=== PATIENT | female | born 1970 | race Caucasian/White ===

== ENCOUNTER 2016-05-25 22:47 | Emergency (ER) | payer BC ==
[2016-05-25 23:11] LABS: BASO % 0.3 % (0.0-1.0); EOS # 0.1 K/mm3 (0.0-0.50); LARGE UNSTAINED CELL # 0.2 K/mm3 (0.0-0.4); LARGE UNSTAINED CELL % 2.3 % (0.0-4.0); LYMPH # 2.8 K/mm3 (1.5-4.5); LYMPH % 32.3 % (24.0-44.0); MEAN CORPUSCULAR HEMOGLOBIN 28.8 pg (27.0-33.0); MEAN CORPUSCULAR VOLUME 84.7 fl (80.0-96.0); MONO # 0.4 K/mm3 (0.0-0.8); MONO % 4.8 % (0.0-5.0); NEUTROPHILS # 5.2 K/mm3 (1.8-7.7); NEUTROPHILS % 59.4 % (36.0-66.0); PLATELET COUNT, AUTOMATED 317 k/mm3 (150-450); RED CELL DISTRIBUTION WIDTH 13.3 % (11.5-14.5); WHITE BLOOD COUNT 8.8 K/mm3 (4.0-10.0)
[2016-05-25] MEDS ORDERED: ASPIRIN 81 MG CHEW TABLET As Ordered ONE (23:19)
[2016-05-25 23:41] LABS: ANION GAP 11 MEQ/L (8-16); BLOOD UREA NITROGEN 10 MG/DL (7-18); CALCIUM LEVEL 8.8 MG/DL (8.5-10.1); CARBON DIOXIDE LEVEL 24 MEQ/L (21-32); CHLORIDE LEVEL 105 MEQ/L (98-107); CREATININE FOR GFR 1.13 MG/DL (0.55-1.02); GLOMERULAR FILTRATION RATE 54.9 (>58); GLUCOSE, FASTING 122 MG/DL (70-105); POTASSIUM SERUM 3.7 MEQ/L (3.5-5.1); SODIUM LEVEL 140 MEQ/L (136-145)
--- NOTE | 2016-05-26 00:20 | REPUSA ---
CLINICAL HISTORY: Facial numbness. TECHNIQUE: Multiple axial brain CT scan sections were obtained from base to vertex without contrast a dministration. COMMENTS: The study shows normal configuration of sella turcica. There are no intra or extra-axial collections. There is no mass effect or midline shift. There is no evidence of hematoma formation. No hydrocephal us is present. No abnormal calcifications are noted. No significant abnormalities are seen either in the posterior fossa or supratentorial compartment. The sinuses and mastoid air cells are patent. IMPRESSION: No evidence of acute intracranial pathology. Thank you for your kind referral of this patient.
--- NOTE | 2016-05-26 03:04 | REP ---
Clinical: Acute chest pain . Comparison: 05/30/2013 . Technique: PA and lateral. Findings: The mediastinum and cardiac silhouette are normal. The lung ellis are clear and without acute consolidation, effusion, or pneumothorax. The skeletal structures are intact and normal. Impression: 1. No acute cardiopulmonary process. Signed by Ankit Ramirez MD 05/26/2016 02:55 A
--- NOTE | 2016-05-26 03:58 | EDDOCDS ---
Nurse's Notes [facility] Name: Hali Mccarthy Age: 45 yrs Sex: Female : 1970 Arrival Date: 05/25/2016 Time: 22:47 Bed 17 Private MD: Diagnosis: Chest pain, unspecified;Paresthesia of skin Presentation: 05/25 22:50 Presenting complaint: Patient states: Facial numbness since 2144. Left arm pain while lf1 driving in to work tonight resolved quickly without intervention. Had chest pain at 1999 but denies it now. Aspirin was not taken prior to arrival. Adult Sepsis Screening: The patient does not have new or worsening altered mentation. Patient's respiratory rate is less than 22. Systolic blood pressure is greater than 100. Patient has a qSOFA score of 0- Negative Sepsis Screen. Suicide/Homicide risk assessment- the patient denies having any suicidal and/or homicidal ideations and does not present with any other emotional, behavioral or mental health complaints. 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 Transition of care: patient was not received from another setting of care. 22:50 Acuity: JESSICA Level 2 lf1 22:50 Method Of Arrival: Walkin/Carried/Asstd lf1 Triage Assessment: 22:56 General: Appears in no apparent distress, comfortable, Behavior is appropriate for age, lf1 cooperative, pleasant. Pain: Location: anterior aspect of left upper chest Pain currently is 0 out of 10 on a pain scale. Quality of pain is described as shooting, Is intermittent. Pt Declines HIV testing. Neurological: Reports numbness left side of face. Cardiovascular: Chest pain. Cardiovascular: Chest pain is described as vague, quality is shooting radiates Does not radiate. episodes are intermittent last < 1 minute. DIE MAKER BENCH STAMPING: 22:56 LMP 05/17/2016 lf1 Historical: - Allergies: No known drug Allergies; - Home Meds: 1. omeprazole 40 mg Oral cpDR 1 cap once daily (Last dose: 05/25/2016) 2. Iron CR 250 mg Oral cpER 2 tab daily (Last dose: 05/25/2016) 3. metformin 500 mg Oral tr24 2 tabs once daily (Last dose: 05/25/2016) 4. Vitamin D Oral 2000 units daily (Last dose: 05/25/2016) 5. senna 8.6 mg oral cap 1 caps once daily (Last dose: 05/25/2016) 6. Tums Oral 4 tabs (Last dose: 05/25/2016 20:00) - PMHx: Diabetes - NIDDM: controlled; GERD; Anemia; - PSHx: Tubal ligation; ; - Social history: Smoking status: Patient states was never smoker of tobacco. No barriers to communication noted, The patient speaks fluent Monegasque, Speaks appropriately for age. - Family history: Not pertinent. - : The pt / caregiver states he / she is not on anticoagulants. Home medication list is obtained from the patient, [employer] import data. - Exposure Risk Screening:: None identified. Screenin:08 Screening information is obtained from the patient. Fall risk: No risks identified. jp6 Assistance ADL's: requires no assistance with activities of daily living. Abuse/DV Screen: The patient / caregiver reports he/she is: not in a situation that causes fear, pain or injury. Nutritional screening: No deficits noted. Advance Directives: Currently, there is no health care proxy. There is no active DNR order. There is no living will. home support is adequate. Assessment: 23:08 General: Appears in no apparent distress, comfortable, well developed, well nourished, jp6 Behavior is appropriate for age, cooperative. Pain: Denies pain. Neurological: Level of Consciousness is awake, alert, Oriented to person, place, time, Numbness in face. EENT: No deficits noted. Cardiovascular: Capillary refill < 3 seconds Heart tones S1 S2 present Rhythm is sinus rhythm No ectopy. Respiratory: No deficits noted. Airway is patent Respiratory effort is even, unlabored, Respiratory pattern is regular, symmetrical, Breath sounds are clear bilaterally. GI: No deficits noted. : No deficits noted. Derm: Skin is pink, warm & dry. Musculoskeletal: No deficits noted. 05/26 00:15 Reassessment: Patient appears in no apparent distress at this time. Patient denies pain jp6 at this time. Patient states feeling better. Patient states symptoms have improved. Neurological: Level of Consciousness is awake, alert, Oriented to person, place, time. Cardiovascular: Rhythm is sinus rhythm No ectopy. Respiratory: Airway is patent Respiratory effort is even, unlabored, Respiratory pattern is regular, symmetrical. Derm: Skin is pink, warm & dry. 01:00 Reassessment: Patient appears in no apparent distress at this time. Patient states jp6 feeling better. Neurological: Level of Consciousness is awake, alert, Oriented to person, place, time. Cardiovascular: Rhythm is sinus rhythm No ectopy. Respiratory: Airway is patent Respiratory effort is even, unlabored, Respiratory pattern is regular, symmetrical. Derm: Skin is pink, warm & dry. 02:27 Reassessment: Patient appears in no apparent distress at this time. Patient denies pain jp6 at this time. Patient states feeling better. Patient states symptoms have improved. General: Appears in no apparent distress, comfortable, Behavior is appropriate for age, cooperative. Pain: Denies pain. Neurological: Level of Consciousness is awake, alert, Oriented to person, place, time. Cardiovascular: Capillary refill < 3 seconds Rhythm is sinus rhythm No ectopy. Respiratory: Airway is patent Respiratory effort is even, unlabored, Respiratory pattern is regular, symmetrical. Derm: Skin is pink, warm & dry. 03:56 Reassessment: Patient appears in no apparent distress at this time. Discharge sls1 instructions reviewed with pt including medication use, follow up care and referral for cardiology, pt verbalizes understanding d/c home . Pain: Denies pain. Respiratory: Airway is patent Respiratory effort is even, unlabored, Respiratory pattern is regular, symmetrical. Derm: No deficits noted. Vital Signs: 05/25 22:49 BP 158 / 57; Pulse 98; Resp 20; Temp 97.9; Pulse Ox 100% ; bnb 23:01 BP 149 / 84 (auto/); jp6 23:02 Pulse 84 MON; Pulse Ox 99% ; jp6 23:31 BP 123 / 82 (auto/); jp6 23:31 Pulse 86 MON; Pulse Ox 97% ; jp6 05/26 00:01 BP 111 / 63 (auto/); jp6 00:02 Pulse 68 MON; Pulse Ox 97% ; jp6 00:31 BP 114 / 57 (auto/); jp6 00:31 Pulse 78 MON; Pulse Ox 96% ; jp6 00:42 Pulse 60 MON; Pulse Ox 96% ; jp6 01:01 BP 116 / 66 (auto/); jp6 01:01 Pulse 66 MON; Pulse Ox 98% ; jp6 01:31 BP 114 / 63 (auto/); jp6 01:31 Pulse 62 MON; Pulse Ox 97% ; jp6 02:01 BP 116 / 71 (auto/); jp6 02:01 Pulse 84 MON; Pulse Ox 99% ; jp6 02:26 Pulse 60 MON; Pulse Ox 98% ; jp6 03:47 BP 107 / 71; Pulse 71; Resp 18; Temp 98.7(O); Pulse Ox 97% on R/A; Pain 0/10; breanne Vitals: 05/25 22:49 Log In Time: May 25, 2016 at 22:49. bnb ED Course: 22:48 Patient visited by Neisha Felipe PCA. bnb 22:48 Patient moved to Waiting bnb 22:49 Patient visited by Neisha Felipe PCA. bnb 22:50 Patient visited by Neisha Felipe PCA. bnb 22:52 Mile Jordan FNP is PHCP. le 22:52 Patient moved to 19 cz 22:52 Triage Initiated lf1 22:53 Patient moved to 17 cz 22:54 Ana Sawyer,RN is Primary Nurse. jp6 23:04 Patient visited by Mile Jordan FNP. le 23:04 Patient visited by Mile Jordan FNP. le 23:04 Pt greeted and oriented to ED. Patient advised of names of staff involved in care, breanne location of call thorpe, wait times and NPO status. Patient has correct armband on for positive identification. Placed in gown. Bed in low position. Call light in reach. Side rails up X2. radiation monitor on. Pulse ox on. NIBP on. 23:05 Patient visited by Lorena Guevara PCA. breanne 23:05 EKG done. (by ED staff). Reviewed by Mile FENG. breanne 23:08 The patient / caregiver is instructed regarding the plan of care and ED course. jp6 23:08 Inserted saline lock: 20 gauge in left forearm and blood collected. No procedures done jp6 that require assistance. 23:59 Fred Roca DO is Attending Physician. cs11 05/26 00:06 Patient visited by Lorena Guevara PCA. breanne 00:26 CT Head Without Contrast Returned. EDMS 00:29 [facility] [place] Agreement was scanned into [employer] and attached to record. hs2 00:30 Patient name changed from Hali\S\\S\Bovee\S\ to Hali\S\ \S\Bovee. EDMS 01:25 Patient visited by Lorena Guevara PCA. breanne 02:04 EKG done. (by ED staff). Reviewed by Fred Roca DO. cln 02:25 Patient visited by Lorena Guevara PCA. breanne 02:26 Troponin Sent. jp6 02:26 CIP Sent. jp6 03:19 Chest, 2 View (pa\E\lat) Returned. EDMS 03:26 Patient visited by Lorena Guevara PCA. breanne 03:46 Trae Fabian is Referral Physician. cs11 03:47 Patient visited by Lorena Guevara PCA. breanne 03:56 Discontinued lock intact, bleeding controlled, pressure dressing applied, No sls1 redness/swelling at site. Administered Medications: 05/25 22:54 CANCELLED (Other Intervention Used): Aspirin Chewable Tablet 324 mg PO once le 23:21 Drug: Aspirin 324 mg [aspirin 81 mg chewable tablet (4 tabs)] Route: PO; jp6 Order Results: Lab Order: Basic Metabolic Profile; SPEC'M 05/25/16 23:05 Test: GLUCOSE, FASTING; Value: 122; Range: 70-105; Abnormal: Above high normal; Units: MG/DL; Status: F Test: BLOOD UREA NITROGEN; Value: 10; Range: 7-18; Units: MG/DL; Status: F Test: CREATININE FOR GFR; Value: 1.13; Range: 0.55-1.02; Abnormal: Above high normal; Units: MG/DL; Status: F Test: GLOMERULAR FILTRATION RATE; Value: 54.9; Range: >58; Abnormal: Below low normal; Status: F Test: SODIUM LEVEL; Value: 140; Range: 136-145; Units: MEQ/L; Status: F Test: POTASSIUM SERUM; Value: 3.7; Range: 3.5-5.1; Units: MEQ/L; Status: F Test: CHLORIDE LEVEL; Value: 105; Range: 98-107; Units: MEQ/L; Status: F Test: CARBON DIOXIDE LEVEL; Value: 24; Range: 21-32; Units: MEQ/L; Status: F Test: ANION GAP; Value: 11; Range: 8-16; Units: MEQ/L; Status: F Test: CALCIUM LEVEL; Value: 8.8; Range: 8.5-10.1; Units: MG/DL; Status: F Test Note: ; Units are mL/min/1.73 m2 Chronic Kidney Disease Staging per NKF: Stage I & II GFR >=60 Normal to Mildly Decreased Stage III GFR 30-59 Moderately Decreased Stage IV GFR 15-29 Severely Decreased Stage V GFR <15 Very Little GFR Left ESRD GFR <15 on ADULT BASIC EDUCATION MANAGER Lab Order: CBC with Diff; SPEC'M 05/25/16 23:05 Test: WHITE BLOOD COUNT; Value: 8.8; Range: 4.0-10.0; Units: K/mm3; Status: F Test: RED BLOOD COUNT; Value: 4.59; Range: 4.00-5.40; Units: M/mm3; Status: F Test: HEMOGLOBIN; Value: 13.2; Range: 12.0-16.0; Units: g/dl; Status: F Test: HEMATOCRIT; Value: 38.9; Range: 36.0-47.0; Units: %; Status: F Test: MEAN CORPUSCULAR VOLUME; Value: 84.7; Range: 80.0-96.0; Units: fl; Status: F Test: MEAN CORPUSCULAR HEMOGLOBIN; Value: 28.8; Range: 27.0-33.0; Units: pg; Status: F Test: MEAN CORPUSCULAR HGB CONC; Value: 34.0; Range: 32.0-36.5; Units: g/dl; Status: F Test: RED CELL DISTRIBUTION WIDTH; Value: 13.3; Range: 11.5-14.5; Units: %; Status: F Test: PLATELET COUNT, AUTOMATED; Value: 317; Range: 150-450; Units: k/mm3; Status: F Test: NEUTROPHILS %; Value: 59.4; Range: 36.0-66.0; Units: %; Status: F Test: LYMPH %; Value: 32.3; Range: 24.0-44.0; Units: %; Status: F Test: MONO %; Value: 4.8; Range: 0.0-5.0; Units: %; Status: F Test: EOS %; Value: 1.0; Range: 0.0-3.0; Units: %; Status: F Test: BASO %; Value: 0.3; Range: 0.0-1.0; Units: %; Status: F Test: LARGE UNSTAINED CELL %; Value: 2.3; Range: 0.0-4.0; Units: %; Status: F Test: NEUTROPHILS #; Value: 5.2; Range: 1.8-7.7; Units: K/mm3; Status: F Test: LYMPH #; Value: 2.8; Range: 1.5-4.5; Units: K/mm3; Status: F Test: MONO #; Value: 0.4; Range: 0.0-0.8; Units: K/mm3; Status: F Test: EOS #; Value: 0.1; Range: 0.0-0.50; Units: K/mm3; Status: F Test: BASO #; Value: 0.0; Range: 0.0-0.2; Units: K/mm3; Status: F Test: LARGE UNSTAINED CELL #; Value: 0.2; Range: 0.0-0.4; Units: K/mm3; Status: F Lab Order: Cardiac Injury Profile; SPEC'M 05/25/16 23:05 Test: CPK CREATINE PHOSPHOKINASE; Value: 74; Range: 26-192; Units: U/L; Status: F Test: CK-MB VALUE MASS; Value: 1.0; Range: 0.0-3.6; Units: NG/ML; Status: F Test: MB/CK RELATIVE INDEX; Value: 1.35; Range: < OR =4; Status: F Test Note: ; DIAGNOSIS CRITERIA MMB ng/ml Relative Index (RI) NON-AMI < or = 5 N/A AKINS ZONE > 5 < or = 4 AMI > 5 > 4 Lab Order: Troponin; SPEC'M 05/25/16 23:05 Test: TROPONIN I; Value: < 0.02; Range: < 0.10; Units: NG/ML; Status: F Test Note: ; Troponin I Reference Interval for [employer] LOCI: 99th Percentile= 0.00-0.045 ng/ml Risk Stratification: <= 0.10 ng/ml Decreased Risk for Adverse Clinical Events. 0.10-1.50 ng/ml Increased Risk for Adverse Clinical Events. Evaluation of additional criterion and/or repeat testing in 2-6 hours is suggested to rule out myocardial damage. >= 1.50 ng/ml Indicative of Myocardial Injury. Lab Order: ESR; SPEC'M 05/25/16 23:04 Test: ERYTHROCYTE SEDIMENTATION RATE; Value: 28; Range: 0-20; Abnormal: Above high normal; Units: mm/hr; Status: F Lab Order: CIP; SPEC'M 05/26/16 02:26 Test: CPK CREATINE PHOSPHOKINASE; Value: 67; Range: 26-192; Units: U/L; Status: F Test: CK-MB VALUE MASS; Value: 1.0; Range: 0.0-3.6; Units: NG/ML; Status: F Test: MB/CK RELATIVE INDEX; Value: 1.49; Range: < OR =4; Status: F Test Note: ; DIAGNOSIS CRITERIA MMB ng/ml Relative Index (RI) NON-AMI < or = 5 N/A AKINS ZONE > 5 < or = 4 AMI > 5 > 4 Lab Order: Troponin; SPEC'M 05/26/16 02:26 Test: TROPONIN I; Value: < 0.02; Range: < 0.10; Units: NG/ML; Status: F Test Note: ; Troponin I Reference Interval for [employer] LOCI: 99th Percentile= 0.00-0.045 ng/ml Risk Stratification: <= 0.10 ng/ml Decreased Risk for Adverse Clinical Events. 0.10-1.50 ng/ml Increased Risk for Adverse Clinical Events. Evaluation of additional criterion and/or repeat testing in 2-6 hours is suggested to rule out myocardial damage. >= 1.50 ng/ml Indicative of Myocardial Injury. Radiology Order: Chest, 2 View (pa\E\lat) Test: Chest, 2 View (pa\E\lat) REASON FOR EXAMINATION: Chest Pain; Clinical: Acute chest pain .; ; Comparison: 05/30/2013 .; ; Technique: PA and lateral.; ; Findings:; The mediastinum and cardiac silhouette are normal. The lung ellis are clear and; without acute consolidation, effusion, or pneumothorax. The skeletal structures; are intact and normal.; ; Impression:; 1. No acute cardiopulmonary process.; ; ; Signed by; Ankit Ramirez MD 05/26/2016 02:55 A; Radiology Order: CT Head Without Contrast Test: CT Head Without Contrast REASON FOR EXAMINATION: facial numbness; ; CLINICAL HISTORY: Facial numbness.; TECHNIQUE: Multiple axial brain CT scan sections were obtained from base to vertex without contrast a; dministration.; COMMENTS:; The study shows normal configuration of sella turcica. There are no intra or extra-axial collections.; There is no mass effect or midline shift. There is no evidence of hematoma formation. No hydrocephal; us is present. No abnormal calcifications are noted.; No significant abnormalities are seen either in the posterior fossa or supratentorial compartment.; The sinuses and mastoid air cells are patent.; IMPRESSION:; No evidence of acute intracranial pathology.; Thank you for your kind referral of this patient.; ; Outcome: 05/26 03:45 Discharge ordered by Provider. cs11 03:56 Discharge Assessment: Patient awake, alert and oriented x 3. No cognitive and/or sls1 functional deficits noted. Patient verbalized understanding of disposition instructions. patient administered narcotics - no. The following High Risk Discharge criteria are identified: None. Discharged to home ambulatory. Condition: stable. Discharge instructions given to patient, Instructed on discharge instructions, follow up and referral plans. medication usage, Demonstrated understanding of instructions, medications, Pt was receptive of discharge instructions/ teaching. Prescriptions given X 1. No special radiology studies were completed. Property :Personal belongings accompany Pt. 03:57 Patient left the ED. sls1 Signatures: Dispatcher [employer] EDMS Finn Toledo, RN Mile Zurita,RN RN lf1 Mile Jordan, RETAIL DISTRICT MANAGER RETAIL DISTRICT MANAGER Lorena Luciano, TAILER OUT TAILER OUT Brittany Keane RN RN sls1 Fred Roca, DO cs11 Daina Betancourt, Reg Reg hs2 Kayla Caro, TAILER OUT TAILER OUT Ana Antoine RN RN jp6 Neisha Felipe, TAILER OUT TAILER OUT bnb MTDD
--- NOTE | 2016-05-26 03:58 | EDDOCDS ---
Physician Documentation [facility] Name: Hali Mccarthy Age: 45 yrs Sex: Female : 1970 Arrival Date: 05/25/2016 Time: 22:47 Bed 17 Private MD: Disposition: 05/26/16 03:45 Discharged to Home/Self Care. Impression: Chest pain, unspecified, Paresthesia of skin. - Condition is Stable. - Prescriptions for Aspirin 81 mg - take 1 tablet by ORAL route once daily; 90 tablet. - Medication Reconciliation, Local Pharmacy Hours form. - Follow up: Private Physician; When: Call to arrange an appointment; Reason: Recheck today's complaints. Follow up: Trae Fabian; When: Call to arrange an appointment; Reason: Recheck today's complaints. - Problem is new. - Symptoms have improved. Historical: - Allergies: No known drug Allergies; - Home Meds: 1. omeprazole 40 mg Oral cpDR 1 cap once daily (Last dose: 05/25/2016) 2. Iron CR 250 mg Oral cpER 2 tab daily (Last dose: 05/25/2016) 3. metformin 500 mg Oral tr24 2 tabs once daily (Last dose: 05/25/2016) 4. Vitamin D Oral 2000 units daily (Last dose: 05/25/2016) 5. senna 8.6 mg oral cap 1 caps once daily (Last dose: 05/25/2016) 6. Tums Oral 4 tabs (Last dose: 05/25/2016 20:00) - PMHx: Diabetes - NIDDM: controlled; GERD; Anemia; - PSHx: Tubal ligation; ; - Social history: Smoking status: Patient states was never smoker of tobacco. No barriers to communication noted, The patient speaks fluent Belizean, Speaks appropriately for age. - Family history: Not pertinent. - : The pt / caregiver states he / she is not on anticoagulants. Home medication list is obtained from the patient, [employer] import data. - Exposure Risk Screening:: None identified. DIABETES TRAINER: 05/25 22:56 LMP 05/17/2016 lf1 Vital Signs: 22:49 BP 158 / 57; Pulse 98; Resp 20; Temp 97.9; Pulse Ox 100% ; bnb 23:01 BP 149 / 84 (auto/); jp6 23:02 Pulse 84 MON; Pulse Ox 99% ; jp6 23:31 BP 123 / 82 (auto/); jp6 23:31 Pulse 86 MON; Pulse Ox 97% ; jp6 05/26 00:01 BP 111 / 63 (auto/); jp6 00:02 Pulse 68 MON; Pulse Ox 97% ; jp6 00:31 BP 114 / 57 (auto/); jp6 00:31 Pulse 78 MON; Pulse Ox 96% ; jp6 00:42 Pulse 60 MON; Pulse Ox 96% ; jp6 01:01 BP 116 / 66 (auto/); jp6 01:01 Pulse 66 MON; Pulse Ox 98% ; jp6 01:31 BP 114 / 63 (auto/); jp6 01:31 Pulse 62 MON; Pulse Ox 97% ; jp6 02:01 BP 116 / 71 (auto/); jp6 02:01 Pulse 84 MON; Pulse Ox 99% ; jp6 02:26 Pulse 60 MON; Pulse Ox 98% ; jp6 03:47 BP 107 / 71; Pulse 71; Resp 18; Temp 98.7(O); Pulse Ox 97% on R/A; Pain 0/10; breanne MDM: 05/25 22:53 Perishable Fruit Inspector/Pulse Ox/q 30 min VS ordered. le 22:53 IV Saline Lock ordered. le 22:53 Rhythm Strip to chart ordered. le 22:53 Undress patient appropriately for examination ordered. le 22:54 Basic Metabolic Profile Ordered. EDMS 22:54 CBC with Diff Ordered. EDMS 22:54 Cardiac Injury Profile Ordered. EDMS 22:54 Troponin Ordered. EDMS 22:54 Chest, 2 View (pa\E\lat) Ordered. EDMS 22:54 ECG WITH READING ER PHYS+CARDIAG ordered. EDMS 22:55 CT Head Without Contrast Ordered. EDMS 23:16 Aspirin Chewable Tablet 324 mg PO once ordered. le 23:50 Financial registration complete. hs2 23:59 Basic Metabolic Profile Reviewed. le 23:59 CBC with Diff Reviewed. le 23:59 Cardiac Injury Profile Reviewed. le 23:59 Troponin Reviewed. le 05/26 00:00 Repeat EKG (put time details section) ordered. le 00:00 Redraw CIP &Troponin (put time in details section) ordered. le 00:00 ESR Ordered. EDMS 00:11 Repeat EKG (put time details section) complete. tmm1 00:11 Redraw CIP &Troponin (put time in details section) complete. tmm1 00:12 ECG WITH READING ER PHYS ordered. EDMS 00:29 [facility] Payment Agreement was scanned into [employer] and attached to record. hs2 02:06 CIP Ordered. EDMS 02:06 Troponin Ordered. EDMS 02:22 ESR Reviewed. cs11 02:22 CT Head Without Contrast Reviewed. cs11 03:43 CIP Reviewed. cs11 03:43 Troponin Reviewed. cs11 03:43 Chest, 2 View (pa\E\lat) Reviewed. cs11 Administered Medications: 05/25 22:54 CANCELLED (Other Intervention Used): Aspirin Chewable Tablet 324 mg PO once le 23:21 Drug: Aspirin 324 mg [aspirin 81 mg chewable tablet (4 tabs)] Route: PO; jp6 Signatures: Dispatcher [employer] EDMS Mile Neumann,RN RN lf1 Mile Jordan, CARGO TRIMMER Brittany Roberson RN RN sls1 Fred Roca, DO DO cs11 McLear, Eneida, SCREEN PRINTING CLOTH SPREADER SCREEN PRINTING CLOTH SPREADER tmm1 Daina Betancourt, Reg Reg hs2 Ana Sawyer,RN RN jp6 The chart was reviewed and I authenticate all verbal orders and agree with the evaluation and treatment provided.Corrections: (The following items were deleted from the chart) 22:54 22:53 Aspirin Chewable Tablet 324 mg PO once ordered. le le Attachments: 05/26 00:29 [facility] Payment Agreement hs2 MTDD
--- NOTE | 2016-05-26 12:58 | ECGEPIP ---
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
--- NOTE | 2016-05-26 13:00 | ECGEPIP ---
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
--- NOTE | 2016-05-28 04:58 | EDDOCDS ---
Physician Documentation [facility] Name: Hali Mccarthy Age: 45 yrs Sex: Female : 1970 Arrival Date: 05/25/2016 Time: 22:47 Bed 17 Private MD: Disposition: 05/26/16 03:45 Discharged to Home/Self Care. Impression: Chest pain, unspecified, Paresthesia of skin. - Condition is Stable. - Prescriptions for Aspirin 81 mg - take 1 tablet by ORAL route once daily; 90 tablet. - Medication Reconciliation, Local Pharmacy Hours form. - Follow up: Private Physician; When: Call to arrange an appointment; Reason: Recheck today's complaints. Follow up: Trae Fabian; When: Call to arrange an appointment; Reason: Recheck today's complaints. - Problem is new. - Symptoms have improved. Historical: - Allergies: No known drug Allergies; - Home Meds: 1. omeprazole 40 mg Oral cpDR 1 cap once daily (Last dose: 05/25/2016) 2. Iron CR 250 mg Oral cpER 2 tab daily (Last dose: 05/25/2016) 3. metformin 500 mg Oral tr24 2 tabs once daily (Last dose: 05/25/2016) 4. Vitamin D Oral 2000 units daily (Last dose: 05/25/2016) 5. senna 8.6 mg oral cap 1 caps once daily (Last dose: 05/25/2016) 6. Tums Oral 4 tabs (Last dose: 05/25/2016 20:00) - PMHx: Diabetes - NIDDM: controlled; GERD; Anemia; - PSHx: Tubal ligation; ; - Social history: Smoking status: Patient states was never smoker of tobacco. No barriers to communication noted, The patient speaks fluent Ukrainian, Speaks appropriately for age. - Family history: Not pertinent. - : The pt / caregiver states he / she is not on anticoagulants. Home medication list is obtained from the patient, [place] import data. - Exposure Risk Screening:: None identified. STABLEHAND: 05/25 22:56 LMP 05/17/2016 lf1 Vital Signs: 22:49 BP 158 / 57; Pulse 98; Resp 20; Temp 97.9; Pulse Ox 100% ; bnb 23:01 BP 149 / 84 (auto/); jp6 23:02 Pulse 84 MON; Pulse Ox 99% ; jp6 23:31 BP 123 / 82 (auto/); jp6 23:31 Pulse 86 MON; Pulse Ox 97% ; jp6 05/26 00:01 BP 111 / 63 (auto/); jp6 00:02 Pulse 68 MON; Pulse Ox 97% ; jp6 00:31 BP 114 / 57 (auto/); jp6 00:31 Pulse 78 MON; Pulse Ox 96% ; jp6 00:42 Pulse 60 MON; Pulse Ox 96% ; jp6 01:01 BP 116 / 66 (auto/); jp6 01:01 Pulse 66 MON; Pulse Ox 98% ; jp6 01:31 BP 114 / 63 (auto/); jp6 01:31 Pulse 62 MON; Pulse Ox 97% ; jp6 02:01 BP 116 / 71 (auto/); jp6 02:01 Pulse 84 MON; Pulse Ox 99% ; jp6 02:26 Pulse 60 MON; Pulse Ox 98% ; jp6 03:47 BP 107 / 71; Pulse 71; Resp 18; Temp 98.7(O); Pulse Ox 97% on R/A; Pain 0/10; breanne MDM: 05/25 22:53 Medical Transcription/Pulse Ox/q 30 min VS ordered. le 22:53 IV Saline Lock ordered. le 22:53 Rhythm Strip to chart ordered. le 22:53 Undress patient appropriately for examination ordered. le 22:54 Basic Metabolic Profile Ordered. EDMS 22:54 CBC with Diff Ordered. EDMS 22:54 Cardiac Injury Profile Ordered. EDMS 22:54 Troponin Ordered. EDMS 22:54 Chest, 2 View (pa\E\lat) Ordered. EDMS 22:54 ECG WITH READING ER PHYS+CARDIAG ordered. EDMS 22:55 CT Head Without Contrast Ordered. EDMS 23:16 Aspirin Chewable Tablet 324 mg PO once ordered. le 23:50 Financial registration complete. hs2 23:59 Basic Metabolic Profile Reviewed. le 23:59 CBC with Diff Reviewed. le 23:59 Cardiac Injury Profile Reviewed. le 23:59 Troponin Reviewed. le 05/26 00:00 Repeat EKG (put time details section) ordered. le 00:00 Redraw CIP &Troponin (put time in details section) ordered. le 00:00 ESR Ordered. EDMS 00:11 Repeat EKG (put time details section) complete. tmm1 00:11 Redraw CIP &Troponin (put time in details section) complete. tmm1 00:12 ECG WITH READING ER PHYS ordered. EDMS 00:29 [facility] Payment Agreement was scanned into [employer] and attached to record. hs2 02:06 CIP Ordered. EDMS 02:06 Troponin Ordered. EDMS 02:22 ESR Reviewed. cs11 02:22 CT Head Without Contrast Reviewed. cs11 03:43 CIP Reviewed. cs11 03:43 Troponin Reviewed. cs11 03:43 Chest, 2 View (pa\E\lat) Reviewed. cs11 06:23 ECG WITH READING ER PHYS ordered. EDMS 10:55 T-Sheet-- Draft Copy was scanned into [employer] and attached to record. gb 10:56 ECG/EKG was scanned into [employer] and attached to record. gb 10:56 Trend VS was scanned into [employer] and attached to record. gb 10:57 Radiology Report was scanned into [employer] and attached to record. gb Administered Medications: 05/25 22:54 CANCELLED (Other Intervention Used): Aspirin Chewable Tablet 324 mg PO once le 23:21 Drug: Aspirin 324 mg [aspirin 81 mg chewable tablet (4 tabs)] Route: PO; jp6 Signatures: Dispatcher [employer] EDMS Nickie Love, Reg Reg gb Mile Neumann,RN RN lf1 Mile Jordan, OPTICAL STORE MANAGER OPTICAL STORE MANAGER Brittany Johnson, RN RN sls1 Fred Roca, DO DO cs11 McLear, Eneida, CERTIFIED MASTER SAFE TECHNICIAN CERTIFIED MASTER SAFE TECHNICIAN tmm1 Daina Betancourt, Reg Reg hs2 Ana Sawyer,RN RN jp6 The chart was reviewed and I authenticate all verbal orders and agree with the evaluation and treatment provided.Corrections: (The following items were deleted from the chart) 22:54 22:53 Aspirin Chewable Tablet 324 mg PO once ordered. le le Attachments: 05/26 00:29 [facility] Payment Agreement hs2 10:55 T-Sheet-- Draft Copy gb 10:56 ECG/EKG gb Chart Complete MTDD
--- NOTE | 2016-05-28 04:58 | EDDOCDS ---
Physician Documentation [facility] Name: Hali Mccarthy Age: 45 yrs Sex: Female : 1970 Arrival Date: 05/25/2016 Time: 22:47 Bed 17 Private MD: Disposition: 05/26/16 03:45 Discharged to Home/Self Care. Impression: Chest pain, unspecified, Paresthesia of skin. - Condition is Stable. - Prescriptions for Aspirin 81 mg - take 1 tablet by ORAL route once daily; 90 tablet. - Medication Reconciliation, Local Pharmacy Hours form. - Follow up: Private Physician; When: Call to arrange an appointment; Reason: Recheck today's complaints. Follow up: Trae Fabian; When: Call to arrange an appointment; Reason: Recheck today's complaints. - Problem is new. - Symptoms have improved. Historical: - Allergies: No known drug Allergies; - Home Meds: 1. omeprazole 40 mg Oral cpDR 1 cap once daily (Last dose: 05/25/2016) 2. Iron CR 250 mg Oral cpER 2 tab daily (Last dose: 05/25/2016) 3. metformin 500 mg Oral tr24 2 tabs once daily (Last dose: 05/25/2016) 4. Vitamin D Oral 2000 units daily (Last dose: 05/25/2016) 5. senna 8.6 mg oral cap 1 caps once daily (Last dose: 05/25/2016) 6. Tums Oral 4 tabs (Last dose: 05/25/2016 20:00) - PMHx: Diabetes - NIDDM: controlled; GERD; Anemia; - PSHx: Tubal ligation; ; - Social history: Smoking status: Patient states was never smoker of tobacco. No barriers to communication noted, The patient speaks fluent Finnish, Speaks appropriately for age. - Family history: Not pertinent. - : The pt / caregiver states he / she is not on anticoagulants. Home medication list is obtained from the patient, [employer] import data. - Exposure Risk Screening:: None identified. LINOTYPER: 05/25 22:56 LMP 05/17/2016 lf1 Vital Signs: 22:49 BP 158 / 57; Pulse 98; Resp 20; Temp 97.9; Pulse Ox 100% ; bnb 23:01 BP 149 / 84 (auto/); jp6 23:02 Pulse 84 MON; Pulse Ox 99% ; jp6 23:31 BP 123 / 82 (auto/); jp6 23:31 Pulse 86 MON; Pulse Ox 97% ; jp6 05/26 00:01 BP 111 / 63 (auto/); jp6 00:02 Pulse 68 MON; Pulse Ox 97% ; jp6 00:31 BP 114 / 57 (auto/); jp6 00:31 Pulse 78 MON; Pulse Ox 96% ; jp6 00:42 Pulse 60 MON; Pulse Ox 96% ; jp6 01:01 BP 116 / 66 (auto/); jp6 01:01 Pulse 66 MON; Pulse Ox 98% ; jp6 01:31 BP 114 / 63 (auto/); jp6 01:31 Pulse 62 MON; Pulse Ox 97% ; jp6 02:01 BP 116 / 71 (auto/); jp6 02:01 Pulse 84 MON; Pulse Ox 99% ; jp6 02:26 Pulse 60 MON; Pulse Ox 98% ; jp6 03:47 BP 107 / 71; Pulse 71; Resp 18; Temp 98.7(O); Pulse Ox 97% on R/A; Pain 0/10; breanne MDM: 05/25 22:53 [employer] Executive/Pulse Ox/q 30 min VS ordered. le 22:53 IV Saline Lock ordered. le 22:53 Rhythm Strip to chart ordered. le 22:53 Undress patient appropriately for examination ordered. le 22:54 Basic Metabolic Profile Ordered. EDMS 22:54 CBC with Diff Ordered. EDMS 22:54 Cardiac Injury Profile Ordered. EDMS 22:54 Troponin Ordered. EDMS 22:54 Chest, 2 View (pa\E\lat) Ordered. EDMS 22:54 ECG WITH READING ER PHYS+CARDIAG ordered. EDMS 22:55 CT Head Without Contrast Ordered. EDMS 23:16 Aspirin Chewable Tablet 324 mg PO once ordered. le 23:50 Financial registration complete. hs2 23:59 Basic Metabolic Profile Reviewed. le 23:59 CBC with Diff Reviewed. le 23:59 Cardiac Injury Profile Reviewed. le 23:59 Troponin Reviewed. le 05/26 00:00 Repeat EKG (put time details section) ordered. le 00:00 Redraw CIP &Troponin (put time in details section) ordered. le 00:00 ESR Ordered. EDMS 00:11 Repeat EKG (put time details section) complete. tmm1 00:11 Redraw CIP &Troponin (put time in details section) complete. tmm1 00:12 ECG WITH READING ER PHYS ordered. EDMS 00:29 [facility] Payment Agreement was scanned into [employer] and attached to record. hs2 02:06 CIP Ordered. EDMS 02:06 Troponin Ordered. EDMS 02:22 ESR Reviewed. cs11 02:22 CT Head Without Contrast Reviewed. cs11 03:43 CIP Reviewed. cs11 03:43 Troponin Reviewed. cs11 03:43 Chest, 2 View (pa\E\lat) Reviewed. cs11 06:23 ECG WITH READING ER PHYS ordered. EDMS 10:55 T-Sheet-- Draft Copy was scanned into [employer] and attached to record. gb 10:56 ECG/EKG was scanned into [employer] and attached to record. gb 10:56 Trend VS was scanned into [employer] and attached to record. gb 10:57 Radiology Report was scanned into [employer] and attached to record. gb Administered Medications: 05/25 22:54 CANCELLED (Other Intervention Used): Aspirin Chewable Tablet 324 mg PO once le 23:21 Drug: Aspirin 324 mg [aspirin 81 mg chewable tablet (4 tabs)] Route: PO; jp6 Signatures: Dispatcher [employer] EDMS Nickie Love, Reg Reg gb Mile Neumann,RN RN lf1 Mile Jordan, MAGNETIC TESTING TECHNICIAN MAGNETIC TESTING TECHNICIAN Brittany Johnson, RN RN sls1 Fred Roca, DO DO cs11 McLear, Eneida, MALE IMPERSONATOR MALE IMPERSONATOR tmm1 Daina Betancourt, Reg Reg hs2 Ana Sawyer,RN RN jp6 The chart was reviewed and I authenticate all verbal orders and agree with the evaluation and treatment provided.Corrections: (The following items were deleted from the chart) 22:54 22:53 Aspirin Chewable Tablet 324 mg PO once ordered. le le Attachments: 05/26 00:29 [facility] Payment Agreement hs2 10:55 T-Sheet-- Draft Copy gb 10:56 ECG/EKG gb Chart Complete MTDD
--- NOTE | 2016-05-28 04:59 | EDDOCDS ---
Nurse's Notes [facility] Name: Emmanuelle Mccarthy Age: 45 yrs Sex: Female : 1970 Arrival Date: 05/25/2016 Time: 22:47 Bed 17 Private MD: Diagnosis: Chest pain, unspecified;Paresthesia of skin Presentation: 05/25 22:50 Presenting complaint: Patient states: Facial numbness since 2144. Left arm pain while lf1 driving in to work tonight resolved quickly without intervention. Had chest pain at 1999 but denies it now. Aspirin was not taken prior to arrival. Adult Sepsis Screening: The patient does not have new or worsening altered mentation. Patient's respiratory rate is less than 22. Systolic blood pressure is greater than 100. Patient has a qSOFA score of 0- Negative Sepsis Screen. Suicide/Homicide risk assessment- the patient denies having any suicidal and/or homicidal ideations and does not present with any other emotional, behavioral or mental health complaints. 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 Transition of care: patient was not received from another setting of care. 22:50 Acuity: JESSICA Level 2 lf1 22:50 Method Of Arrival: Walkin/Carried/Asstd lf1 Triage Assessment: 22:56 General: Appears in no apparent distress, comfortable, Behavior is appropriate for age, lf1 cooperative, pleasant. Pain: Location: anterior aspect of left upper chest Pain currently is 0 out of 10 on a pain scale. Quality of pain is described as shooting, Is intermittent. Pt Declines HIV testing. Neurological: Reports numbness left side of face. Cardiovascular: Chest pain. Cardiovascular: Chest pain is described as vague, quality is shooting radiates Does not radiate. episodes are intermittent last < 1 minute. 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 omeprazole 40 mg Oral cpDR 1 cap once daily (Last dose: 05/25/2016) 2. Iron CR 250 mg Oral cpER 2 tab daily (Last dose: 05/25/2016) 3. metformin 500 mg Oral tr24 2 tabs once daily (Last dose: 05/25/2016) 4. Vitamin D Oral 2000 units daily (Last dose: 05/25/2016) 5. senna 8.6 mg oral cap 1 caps once daily (Last dose: 05/25/2016) 6. Tums Oral 4 tabs (Last dose: 05/25/2016 20:00) - PMHx: Diabetes - NIDDM: controlled; GERD; Anemia; - PSHx: Tubal ligation; ; - Social history: Smoking status: Patient states was never smoker of tobacco. No barriers to communication noted, The patient speaks fluent [place], Speaks appropriately for age. - Family history: Not pertinent. - : The pt / caregiver states he / she is not on anticoagulants. Home medication list is obtained from the patient, [employer] import data. - Exposure Risk Screening:: None identified. Screenin:08 Screening information is obtained from the patient. Fall risk: No risks identified. jp6 Assistance ADL's: requires no assistance with activities of daily living. Abuse/DV Screen: The patient / caregiver reports he/she is: not in a situation that causes fear, pain or injury. Nutritional screening: No deficits noted. Advance Directives: Currently, there is no health care proxy. There is no active DNR order. There is no living will. home support is adequate. Assessment: 23:08 General: Appears in no apparent distress, comfortable, well developed, well nourished, jp6 Behavior is appropriate for age, cooperative. Pain: Denies pain. Neurological: Level of Consciousness is awake, alert, Oriented to person, place, time, Numbness in face. EENT: No deficits noted. Cardiovascular: Capillary refill < 3 seconds Heart tones S1 S2 present Rhythm is sinus rhythm No ectopy. Respiratory: No deficits noted. Airway is patent Respiratory effort is even, unlabored, Respiratory pattern is regular, symmetrical, Breath sounds are clear bilaterally. GI: No deficits noted. : No deficits noted. Derm: Skin is pink, warm & dry. Musculoskeletal: No deficits noted. 05/26 00:15 Reassessment: Patient appears in no apparent distress at this time. Patient denies pain jp6 at this time. Patient states feeling better. Patient states symptoms have improved. Neurological: Level of Consciousness is awake, alert, Oriented to person, place, time. Cardiovascular: Rhythm is sinus rhythm No ectopy. Respiratory: Airway is patent Respiratory effort is even, unlabored, Respiratory pattern is regular, symmetrical. Derm: Skin is pink, warm & dry. 01:00 Reassessment: Patient appears in no apparent distress at this time. Patient states jp6 feeling better. Neurological: Level of Consciousness is awake, alert, Oriented to person, place, time. Cardiovascular: Rhythm is sinus rhythm No ectopy. Respiratory: Airway is patent Respiratory effort is even, unlabored, Respiratory pattern is regular, symmetrical. Derm: Skin is pink, warm & dry. 02:27 Reassessment: Patient appears in no apparent distress at this time. Patient denies pain jp6 at this time. Patient states feeling better. Patient states symptoms have improved. General: Appears in no apparent distress, comfortable, Behavior is appropriate for age, cooperative. Pain: Denies pain. Neurological: Level of Consciousness is awake, alert, Oriented to person, place, time. Cardiovascular: Capillary refill < 3 seconds Rhythm is sinus rhythm No ectopy. Respiratory: Airway is patent Respiratory effort is even, unlabored, Respiratory pattern is regular, symmetrical. Derm: Skin is pink, warm & dry. 03:56 Reassessment: Patient appears in no apparent distress at this time. Discharge sls1 instructions reviewed with pt including medication use, follow up care and referral for cardiology, pt verbalizes understanding d/c home . Pain: Denies pain. Respiratory: Airway is patent Respiratory effort is even, unlabored, Respiratory pattern is regular, symmetrical. Derm: No deficits noted. Vital Signs: 05/25 22:49 BP 158 / 57; Pulse 98; Resp 20; Temp 97.9; Pulse Ox 100% ; bnb 23:01 BP 149 / 84 (auto/); jp6 23:02 Pulse 84 MON; Pulse Ox 99% ; jp6 23:31 BP 123 / 82 (auto/); jp6 23:31 Pulse 86 MON; Pulse Ox 97% ; jp6 05/26 00:01 BP 111 / 63 (auto/); jp6 00:02 Pulse 68 MON; Pulse Ox 97% ; jp6 00:31 BP 114 / 57 (auto/); jp6 00:31 Pulse 78 MON; Pulse Ox 96% ; jp6 00:42 Pulse 60 MON; Pulse Ox 96% ; jp6 01:01 BP 116 / 66 (auto/); jp6 01:01 Pulse 66 MON; Pulse Ox 98% ; jp6 01:31 BP 114 / 63 (auto/); jp6 01:31 Pulse 62 MON; Pulse Ox 97% ; jp6 02:01 BP 116 / 71 (auto/); jp6 02:01 Pulse 84 MON; Pulse Ox 99% ; jp6 02:26 Pulse 60 MON; Pulse Ox 98% ; jp6 03:47 BP 107 / 71; Pulse 71; Resp 18; Temp 98.7(O); Pulse Ox 97% on R/A; Pain 0/10; breanne Vitals: 05/25 22:49 Log In Time: May 25, 2016 at 22:49. bnb ED Course: 22:48 Patient visited by Neisha Felipe PCA. bnb 22:48 Patient moved to Waiting bnb 22:49 Patient visited by Neisha Felipe PCA. bnb 22:50 Patient visited by Neisha Felipe PCA. bnb 22:52 Mile Jordan FNP is PHCP. le 22:52 Patient moved to 19 cz 22:52 Triage Initiated lf1 22:53 Patient moved to 17 cz 22:54 Ana Sawyer,RN is Primary Nurse. jp6 23:04 Patient visited by Mile Jordan FNP. le 23:04 Patient visited by Mile Jordan FNP. le 23:04 Pt greeted and oriented to ED. Patient advised of names of staff involved in care, breanne location of call thorpe, wait times and NPO status. Patient has correct armband on for positive identification. Placed in gown. Bed in low position. Call light in reach. Side rails up X2. senior loan processor on. Pulse ox on. NIBP on. 23:05 Patient visited by Lorena Guevara PCA. breanne 23:05 EKG done. (by ED staff). Reviewed by Mile FENG. breanne 23:08 The patient / caregiver is instructed regarding the plan of care and ED course. jp6 23:08 Inserted saline lock: 20 gauge in left forearm and blood collected. No procedures done jp6 that require assistance. 23:59 Fred Roca DO is Attending Physician. cs11 05/26 00:06 Patient visited by Lorena Guevara PCA. breanne 00:26 CT Head Without Contrast Returned. EDMS 00:29 [facility] [place] Payment Agreement was scanned into [employer] and attached to record. hs2 00:30 Patient name changed from Emmanuelle\S\\S\Bovee\S\ to Emmanuelle\S\ \S\Bovee. EDMS 01:25 Patient visited by Lorena Guevara PCA. breanne 02:04 EKG done. (by ED staff). Reviewed by Fred Roca DO. cln 02:25 Patient visited by Lorena Guevara PCA. breanne 02:26 Troponin Sent. jp6 02:26 CIP Sent. jp6 03:19 Chest, 2 View (pa\E\lat) Returned. EDMS 03:26 Patient visited by Lorena Guevara PCA. breanne 03:46 Trae Fabian is Referral Physician. cs11 03:47 Patient visited by Lorena Guevara PCA. breanne 03:56 Discontinued lock intact, bleeding controlled, pressure dressing applied, No sls1 redness/swelling at site. 10:55 T-Sheet-- Draft Copy was scanned into [employer] and attached to record. gb 10:56 ECG/EKG was scanned into [employer] and attached to record. gb 10:56 Trend VS was scanned into [employer] and attached to record. gb 10:57 Radiology Report was scanned into [employer] and attached to record. gb 13:09 EKG-ADULT Returned. EDMS 13:09 ECG WITH READING ER PHYS Returned. EDMS Administered Medications: 05/25 22:54 CANCELLED (Other Intervention Used): Aspirin Chewable Tablet 324 mg PO once le 23:21 Drug: Aspirin 324 mg [aspirin 81 mg chewable tablet (4 tabs)] Route: PO; jp6 Attachments: 10:56 Trend VS gb Order Results: Lab Order: Basic Metabolic Profile; SPEC'M 05/25/16 23:05 Test: GLUCOSE, FASTING; Value: 122; Range: 70-105; Abnormal: Above high normal; Units: MG/DL; Status: F Test: BLOOD UREA NITROGEN; Value: 10; Range: 7-18; Units: MG/DL; Status: F Test: CREATININE FOR GFR; Value: 1.13; Range: 0.55-1.02; Abnormal: Above high normal; Units: MG/DL; Status: F Test: GLOMERULAR FILTRATION RATE; Value: 54.9; Range: >58; Abnormal: Below low normal; Status: F Test: SODIUM LEVEL; Value: 140; Range: 136-145; Units: MEQ/L; Status: F Test: POTASSIUM SERUM; Value: 3.7; Range: 3.5-5.1; Units: MEQ/L; Status: F Test: CHLORIDE LEVEL; Value: 105; Range: 98-107; Units: MEQ/L; Status: F Test: CARBON DIOXIDE LEVEL; Value: 24; Range: 21-32; Units: MEQ/L; Status: F Test: ANION GAP; Value: 11; Range: 8-16; Units: MEQ/L; Status: F Test: CALCIUM LEVEL; Value: 8.8; Range: 8.5-10.1; Units: MG/DL; Status: F Test Note: ; Units are mL/min/1.73 m2 Chronic Kidney Disease Staging per NKF: Stage I & II GFR >=60 Normal to Mildly Decreased Stage III GFR 30-59 Moderately Decreased Stage IV GFR 15-29 Severely Decreased Stage V GFR <15 Very Little GFR Left ESRD GFR <15 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 Lab Order: CBC with Diff; SPEC'M 05/25/16 23:05 Test: WHITE BLOOD COUNT; Value: 8.8; Range: 4.0-10.0; Units: K/mm3; Status: F Test: RED BLOOD COUNT; Value: 4.59; Range: 4.00-5.40; Units: M/mm3; Status: F Test: HEMOGLOBIN; Value: 13.2; Range: 12.0-16.0; Units: g/dl; Status: F Test: HEMATOCRIT; Value: 38.9; Range: 36.0-47.0; Units: %; Status: F Test: MEAN CORPUSCULAR VOLUME; Value: 84.7; Range: 80.0-96.0; Units: fl; Status: F Test: MEAN CORPUSCULAR HEMOGLOBIN; Value: 28.8; Range: 27.0-33.0; Units: pg; Status: F Test: MEAN CORPUSCULAR HGB CONC; Value: 34.0; Range: 32.0-36.5; Units: g/dl; Status: F Test: RED CELL DISTRIBUTION WIDTH; Value: 13.3; Range: 11.5-14.5; Units: %; Status: F Test: PLATELET COUNT, AUTOMATED; Value: 317; Range: 150-450; Units: k/mm3; Status: F Test: NEUTROPHILS %; Value: 59.4; Range: 36.0-66.0; Units: %; Status: F Test: LYMPH %; Value: 32.3; Range: 24.0-44.0; Units: %; Status: F Test: MONO %; Value: 4.8; Range: 0.0-5.0; Units: %; Status: F Test: EOS %; Value: 1.0; Range: 0.0-3.0; Units: %; Status: F Test: BASO %; Value: 0.3; Range: 0.0-1.0; Units: %; Status: F Test: LARGE UNSTAINED CELL %; Value: 2.3; Range: 0.0-4.0; Units: %; Status: F Test: NEUTROPHILS #; Value: 5.2; Range: 1.8-7.7; Units: K/mm3; Status: F Test: LYMPH #; Value: 2.8; Range: 1.5-4.5; Units: K/mm3; Status: F Test: MONO #; Value: 0.4; Range: 0.0-0.8; Units: K/mm3; Status: F Test: EOS #; Value: 0.1; Range: 0.0-0.50; Units: K/mm3; Status: F Test: BASO #; Value: 0.0; Range: 0.0-0.2; Units: K/mm3; Status: F Test: LARGE UNSTAINED CELL #; Value: 0.2; Range: 0.0-0.4; Units: K/mm3; Status: F Lab Order: Cardiac Injury Profile; SPEC'M 05/25/16 23:05 Test: CPK CREATINE PHOSPHOKINASE; Value: 74; Range: 26-192; Units: U/L; Status: F Test: CK-MB VALUE MASS; Value: 1.0; Range: 0.0-3.6; Units: NG/ML; Status: F Test: MB/CK RELATIVE INDEX; Value: 1.35; Range: < OR =4; Status: F Test Note: ; DIAGNOSIS CRITERIA MMB ng/ml Relative Index (RI) NON-AMI < or = 5 N/A AKINS ZONE > 5 < or = 4 AMI > 5 > 4 Lab Order: Troponin; SPEC'M 05/25/16 23:05 Test: TROPONIN I; Value: < 0.02; Range: < 0.10; Units: NG/ML; Status: F Test Note: ; Troponin I Reference Interval for [employer]: 99th Percentile= 0.00-0.045 ng/ml Risk Stratification: <= 0.10 ng/ml Decreased Risk for Adverse Clinical Events. 0.10-1.50 ng/ml Increased Risk for Adverse Clinical Events. Evaluation of additional criterion and/or repeat testing in 2-6 hours is suggested to rule out myocardial damage. >= 1.50 ng/ml Indicative of Myocardial Injury. Lab Order: ESR; [facility] 05/25/16 23:04 Test: ERYTHROCYTE SEDIMENTATION RATE; Value: 28; Range: 0-20; Abnormal: Above high normal; Units: mm/hr; Status: F Lab Order: CIP; [facility] 05/26/16 02:26 Test: CPK CREATINE PHOSPHOKINASE; Value: 67; Range: 26-192; Units: U/L; Status: F Test: CK-MB VALUE MASS; Value: 1.0; Range: 0.0-3.6; Units: NG/ML; Status: F Test: MB/CK RELATIVE INDEX; Value: 1.49; Range: < OR =4; Status: F Test Note: ; DIAGNOSIS CRITERIA MMB ng/ml Relative Index (RI) NON-AMI < or = 5 N/A AKINS ZONE > 5 < or = 4 AMI > 5 > 4 Lab Order: Troponin; [facility] 05/26/16 02:26 Test: TROPONIN I; Value: < 0.02; Range: < 0.10; Units: NG/ML; Status: F Test Note: ; Troponin I Reference Interval for [employer] [place] [employer]: 99th Percentile= 0.00-0.045 ng/ml Risk Stratification: <= 0.10 ng/ml Decreased Risk for Adverse Clinical Events. 0.10-1.50 ng/ml Increased Risk for Adverse Clinical Events. Evaluation of additional criterion and/or repeat testing in 2-6 hours is suggested to rule out myocardial damage. >= 1.50 ng/ml Indicative of Myocardial Injury. Radiology Order: Chest, 2 View (pa\E\lat) Test: Chest, 2 View (pa\E\lat) REASON FOR EXAMINATION: Chest Pain; Clinical: Acute chest pain .; ; Comparison: 05/30/2013 .; ; Technique: PA and lateral.; ; Findings:; The mediastinum and cardiac silhouette are normal. The lung ellis are clear and; without acute consolidation, effusion, or pneumothorax. The skeletal structures; are intact and normal.; ; Impression:; 1. 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; : 1970 Requested By: MILE FENG; Order Number: [id number] Reading MD: Estrellita Wolfe; Measurements; Intervals [place]; Rate: 93 P: 59; MS: 136 QRS: -12; QRSD: 87 T: 30; QT: 347; QTc: 433; Interpretive Statements; SINUS RHYTHM; LOW QRS VOLTAGE IN PRECORDIAL LEADS; ?PRIOR INFERIOR DE; PRWP; LOW VOLTAGE LIMB; NO PRIOR FOR COMPARISON; Electronically Signed On 05-26-2016 12:57:54 EST by Estrellita Wolfe; Radiology Order: CT Head Without Contrast Test: CT Head Without Contrast REASON FOR EXAMINATION: facial numbness; ; CLINICAL HISTORY: Facial numbness.; TECHNIQUE: Multiple axial brain CT scan sections were obtained from base to vertex without contrast a; dministration.; COMMENTS:; The study shows normal configuration of sella turcica. There are no intra or extra-axial collections.; There is no mass effect or midline shift. There is no evidence of hematoma formation. No hydrocephal; us is present. 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 cs11 03:56 Discharge Assessment: Patient awake, alert and oriented x 3. No cognitive and/or sls1 functional deficits noted. Patient verbalized understanding of disposition instructions. patient administered narcotics - no. The following High Risk Discharge criteria are identified: None. Discharged to home ambulatory. Condition: stable. Discharge instructions given to patient, Instructed on discharge instructions, follow up and referral plans. medication usage, Demonstrated understanding of instructions, medications, Pt was receptive of discharge instructions/ teaching. Prescriptions given X 1. No special radiology studies were completed. Property :Personal belongings accompany Pt. 03:57 Patient left the ED. sls1 Signatures: Dispatcher [employer] EDMS Finn Toledo RN RN Nickie Mg, Reg Reg gb Mile Neumann,RN RN lf1 Mile Jordan FNP FNP le Ewald, Destiny, VISUAL INSPECTOR VISUAL INSPECTOR Brittany Keane, RN RN sls1 Fred Roca, DO DO cs11 Daina Betancourt, Reg Reg hs2 Kayla Caro, VISUAL INSPECTOR VISUAL INSPECTOR Ana Antoine RN RN jp6 Neisha Felipe, VISUAL INSPECTOR VISUAL INSPECTOR bnb Chart Complete MTDD
== END 2016-05-26 03:57 | disposition home or self-care (01) ==
LOC: M ED 22:47
DX: R07.9 Chest pain, unspecified (principal); E11.9 Type 2 diabetes mellitus without complications; D64.9 Anemia, unspecified; K21.9 Gastro-esophageal reflux disease without esophagitis; Z82.49 Family history of ischemic heart disease and other diseases of the circulatory system; Z79.84 Long term (current) use of oral hypoglycemic drugs; Z79.899 Other long term (current) drug therapy

== ENCOUNTER → 2016-08-14 | Outpatient (REF) | payer BC ==
[2016-08-14 13:12] LABS: FERRITIN 7 NG/ML (8-252)
== END ==
LOC: M LAB REF 12:06
PROVIDERS: ATTEND Nurse Practitioner Adult Health
DX: D50.9 Iron deficiency anemia, unspecified (principal)

== ENCOUNTER → 2016-11-27 | Outpatient (REF) | payer BC | LOC: M LAB REF 16:48 | PROVIDERS: ATTEND Nurse Practitioner Adult Health | DX: D50.9 Iron deficiency anemia, unspecified (principal) ==

== ENCOUNTER → 2017-03-04 | Outpatient (REF) | payer BC | LOC: M LAB REF 16:48 | PROVIDERS: ATTEND Nurse Practitioner Adult Health | DX: D50.9 Iron deficiency anemia, unspecified (principal) ==

== ENCOUNTER → 2017-04-08 | Outpatient (REF) | payer BC | LOC: M LAB REF 12:08 | PROVIDERS: ATTEND Physician Assistant | DX: N39.0 Urinary tract infection, site not specified (principal) ==

== ENCOUNTER → 2017-04-21 | Outpatient (REF) | payer BC | LOC: M LAB REF 13:38 | PROVIDERS: ATTEND Nurse Practitioner Adult Health | DX: D50.9 Iron deficiency anemia, unspecified (principal) ==

== ENCOUNTER → 2017-04-25 | Outpatient (CLI) | payer BC | LOC: M ADAMS 11:32 | PROVIDERS: ATTEND Physician Assistant Medical | DX: N30.01 Acute cystitis with hematuria (principal) ==

== ENCOUNTER → 2017-06-04 | Outpatient (REF) | payer BC ==
[2017-06-04 14:57] LABS: IRON (FE) 26 UG/DL (50-170)
== END ==
LOC: M LAB REF 13:52
DX: D50.9 Iron deficiency anemia, unspecified (principal)

== ENCOUNTER → 2018-08-06 | Outpatient (REF) | payer BC ==
[2018-08-06 12:58] LABS: PERCENT SATURATION 4.2 % (13.2-45.0)
[2018-08-08 00:07] LABS: ENDOMYSIAL ABY IgA Negative (Negative); TISSUE TRANSGLUTAMINASE IgA <2 U/mL (0-3); TISSUE TRANSGLUTAMINASE IgG <2 U/mL (0-5)
== END ==
LOC: M LAB REF 12:33
PROVIDERS: ATTEND Nurse Practitioner Adult Health
DX: K21.9 Gastro-esophageal reflux disease without esophagitis (principal); D50.9 Iron deficiency anemia, unspecified

== ENCOUNTER 2018-09-12 03:02 | Emergency (ER) | payer BC, OTHER ==
[~2018-09-12] VITALS: Ht 162.6 cm; Wt 68.2 kg
[2018-09-12 03:02] VITALS: BP 147/70
[2018-09-12] MEDS ORDERED: METF10004 PO (03:10)
[2018-09-12] MEDS ORDERED: RANI1TAB38 PO (03:10)
[2018-09-12] MEDS ORDERED: OMEP10CASR PO (03:10)
[2018-09-12] MEDS ORDERED: IRON325T2 PO (03:10)
[2018-09-12] MEDS ORDERED: APAP500T10 PO (03:10)
[2018-09-12] MEDS ORDERED: VITAD1000T PO (03:10)
[2018-09-12] MEDS ORDERED: ASPI81CH PO (03:10)
[2018-09-12] MEDS ORDERED: CYCL10TA PO (06:30)
[2018-09-12] MEDS ORDERED: IBUP-1022 PO (06:30)
[2018-09-12] MEDS ORDERED: CYCLOBENZAPRINE 10 MG TAB PO ONE (06:30)
== END 2018-09-12 06:54 | disposition home or self-care (01) ==
LOC: M ED 03:02
DX: S39.012A Strain of muscle, fascia and tendon of lower back, initial encounter (principal); X58.XXXA Exposure to other specified factors, initial encounter; Y92.89 Other specified places as the place of occurrence of the external cause; E11.9 Type 2 diabetes mellitus without complications; K21.9 Gastro-esophageal reflux disease without esophagitis; Z79.899 Other long term (current) drug therapy; Z79.84 Long term (current) use of oral hypoglycemic drugs; Z79.82 Long term (current) use of aspirin; Z88.1 Allergy status to other antibiotic agents; Z88.2 Allergy status to sulfonamides

== ENCOUNTER → 2020-02-01 | Outpatient (CLI) | payer BC ==
[~2020-02-01] MED LIST: APAP500T10 PO; ASPI81CH4 PO; CHOL100029 PO; CYCL-707 PO; IBUP-1022 PO; IRON325T2 PO; METF10004 PO; OMEP10CASR PO; RANI1TAB38 PO
--- NOTE | 2020-02-03 07:44 | SLEEPCENT ---
DATE: 02/01/2020 ORDERED BY: Eliecer Perkins Diagnostic nocturnal polysomnography was performed for evaluation of sleep physiology in this patient with a history of excessive somnolence and nonrestorative sleep. There was 8 hours and 41 minutes of data reviewed. There was 429.5 minutes of sleep identified. Sleep latency was short at 3.5 minutes. REM latency was normal 90 minutes. Sleep architecture showed fragmentation. Sleep progression was fairly well preserved. There were four REM cycles appreciated. Overall sleep efficiency was 83.6%. The electrocardiogram shows a sinus rhythm with an average heart rate of 60 beats per minute. Frequent premature ventricular contractions (PVCs) were noted. EEG showed normal waveforms for wake and sleep. There were 141 respiratory events identified of 10 seconds in duration or greater for an apnea-hypopnea index of 19.7. The events were not exclusive to sleep stage nor body posture. Arousals from respiratory events occurred 7.5 times per hour, and oxygen desaturations were seen into the 70s. Remaining measures of sleep physiology were fairly normal. IMPRESSION: Obstructive sleep apnea syndrome (G47.33). Apnea-hypopnea index 19.7. RECOMMENDATION: The patient should be encouraged to return to the sleep disorder center for pressure therapy. In the interim, alcohol and sedative avoidance should be practiced and caution exercised during the operation of motor vehicles. MTDD
== END ==
LOC: M SLEEP 20:00
PROVIDERS: ATTEND Physician Assistant
DX: G47.33 Obstructive sleep apnea (adult) (pediatric) (principal); R06.83 Snoring

== ENCOUNTER → 2020-03-06 | Outpatient (CLI) | payer BC ==
--- NOTE | 2020-03-09 11:44 | SLEEPCENT ---
DATE: 03/06/2020 ORDERED BY: Eliecer Perkins Nocturnal polysomnography was performed for the titration of pressure therapy in this patient with obstructive sleep apnea syndrome, apnea-hypopnea index of 19.7. For testing, the patient was fit with a ResMed Mirage FX nasal mask of standard size. There was 4 cm of water pressure applied to the circuit, and the lights were extinguished. There was 7 hours and 44 minutes of data reviewed. There was 282.5 minutes of sleep identified. Sleep latency was short at 5 minutes. REM latency was short at 32 minutes. Sleep architecture was good for the first portion of testing. There were three REM cycles noted. The patient did wake thereafter and had difficulty re-establishing sleep. Overall sleep efficiency was 61.3%. The electrocardiogram showed a sinus rhythm with an average heart rate of 65 beats per minute. EEG showed normal waveforms for wake and sleep. Respiratory events were fully palliated with CPAP at a pressure of +5. Remaining measures of sleep physiology were normal. IMPRESSION: Obstructive sleep apnea syndrome (G47.33). RECOMMENDATION: Nightly use of pressure therapy, 5 cm of water. MTDD
== END ==
LOC: M SLEEP 20:00
PROVIDERS: ATTEND Physician Assistant
DX: G47.33 Obstructive sleep apnea (adult) (pediatric) (principal)

== ENCOUNTER → 2020-03-23 | Outpatient (CLI) | payer BC ==
--- NOTE | 2020-03-23 13:48 | REP ---
INDICATION: IMPINGEMENT SYNDROM OF LT SHOULDER. COMPARISON: January 26, 2020.. TECHNIQUE: Axial, oblique coronal and oblique sagittal imaging planes are utilized. T1 and T2 weighted scans are included with without fat saturation. FINDINGS: Cortical and medullary bone signal intensity are normal on T1 and T2 weighted scans. Normal alignment of the glenohumeral and acromioclavicular joints is seen. There is subcortical cyst formation in the superolateral humeral head mild in degree. Anterior and posterior cartilaginous labrum appear intact. There is no evidence of superior labral disruption. There is moderate diffuse tendinosis tendinitis change in the distal supraspinatus tendon on oblique coronal T1 weighted scans. Ill-defined T2 signal intensity changes are seen in the distal tendon on oblique coronal T2 weighted scans consistent with intrasubstance cuff degeneration. No full-thickness cuff tear is appreciated. The subscapularis and infraspinatus tendons are unremarkable. Biceps tendon appears intact. No periarticular soft tissue mass or cyst is seen. IMPRESSION: Moderate diffuse tendinosis tendinitis change in the distal supraspinatus tot attendant with intrasubstance high signal intensity on T2 weighted scans. No full-thickness cuff tear seen. Radiograph shows a periarticular soft tissue calcification in this region. <Electronically signed by Norm Guan > 03/23/20 [id number]
== END ==
LOC: M RAD 10:33
PROVIDERS: ATTEND Orthopaedic Surgery Sports Medicine
DX: M75.42 Impingement syndrome of left shoulder (principal); M75.82 Other shoulder lesions, left shoulder

== ENCOUNTER → 2021-01-16 | Outpatient (CLI) | payer BC ==
--- NOTE | 2021-01-17 14:29 | SLEEPCENT ---
DATE: 01/16/2021 ORDERED BY: EDILIA Valdez Nocturnal polysomnography was performed for the re-titration of pressure therapy in this patient with obstructive sleep apnea syndrome. For testing, a ResMed Mirage FX nasal mask of standard size was used, 5 cm of water pressure was initially applied to the circuit, and the lights were extinguished. There was 7 hours and 33 minutes of data reviewed. There was 387.5 minutes of sleep identified. Sleep latency was normal at 15 minutes. REM latency was short at 52 minutes. Sleep architecture was good with five REM cycles. Overall sleep efficiency was 86.8%. The electrocardiogram showed a sinus rhythm with an average heart rate of 70 beats per minute. EEG showed normal waveforms for wake and sleep. Respiratory events were fully palliated with CPAP at a pressure of +8. There was some limb activity noted in the EMG leads. Limb movement arousal index on this study was 4.6. IMPRESSION: Obstructive sleep apnea syndrome (G47.33). RECOMMENDATION: Nightly use of pressure therapy, 8 cm of water. cc: JUNG VILLASEÑOR NP
== END ==
LOC: M SLEEP 20:00
PROVIDERS: ATTEND Physician Assistant
DX: G47.33 Obstructive sleep apnea (adult) (pediatric) (principal)

== ENCOUNTER → 2021-04-08 | Outpatient (CLI) | payer BC | LOC: M WHC 13:26 | PROVIDERS: ATTEND Nurse Practitioner Adult Health | DX: Z12.31 Encounter for screening mammogram for malignant neoplasm of breast (principal) ==

== ENCOUNTER → 2021-05-13 | Outpatient (CLI) | payer BC ==
--- NOTE | 2021-05-13 10:05 | REP ---
INDICATION: DENSE BREAST. COMPARISON: Mammogram 04/08/2021. TECHNIQUE: Real-time sonographic evaluation of entire bilateral breasts performed. FINDINGS: In the right breast at 9 o'clock approximately 6 cm from the nipple there is a morphologically normal appearing intramammary lymph node measuring 10 x 5 x 11 mm. In the left breast there are septated cysts identified. At 12 o'clock a cyst with septations measures 8 x 4 x 8 mm, at 1 o'clock another similar appearing septated cyst measures 7 x 4 x 8 mm and at 2 o'clock another similar appearing septated cyst measures 12 x 6 x 10 mm. With elastography interrogation all KP a values are less than 30. IMPRESSION: BIRADS/ACR category 2, benign. Intramammary lymph node right breast and septated cystic structures left breast. RECOMMENDATION: Annual screening. <Electronically signed by Albaro York > 05/13/21 1001
== END ==
LOC: M WHC 07:39
PROVIDERS: ATTEND Nurse Practitioner Adult Health
DX: R92.2 Inconclusive mammogram (principal)

== ENCOUNTER → 2022-01-29 | Outpatient (CLI) | payer BC | LOC: M SOG 07:52 | PROVIDERS: ATTEND Orthopaedic Surgery | DX: M25.512 Pain in left shoulder (principal) ==

== ENCOUNTER → 2022-02-12 | Outpatient (REF) | payer BC | LOC: M LAB REF 16:29 | PROVIDERS: ATTEND Nurse Practitioner Adult Health | DX: D64.9 Anemia, unspecified (principal) ==

== ENCOUNTER → 2022-05-28 | Outpatient (REF) | payer BC | LOC: M LAB REF 16:17 | PROVIDERS: ATTEND Nurse Practitioner Adult Health | DX: E56.9 Vitamin deficiency, unspecified (principal) ==

== ENCOUNTER → 2022-06-04 | Outpatient (REF) | LOC: M LAB 07:18 | PROVIDERS: ATTEND Nurse Practitioner Adult Health | DX: Z02.1 Encounter for pre-employment examination (principal) ==

== ENCOUNTER → 2022-07-11 | Outpatient (CLI) | payer BC | LOC: M WHC 07:38 | PROVIDERS: ATTEND Nurse Practitioner Adult Health | DX: Z12.31 Encounter for screening mammogram for malignant neoplasm of breast (principal) ==

== ENCOUNTER → 2023-01-27 | Outpatient (CLI) | payer BC | LOC: M WUC 14:51 | PROVIDERS: ATTEND Nurse Practitioner Adult Health | DX: M25.561 Pain in right knee (principal) ==

== ENCOUNTER → 2023-06-23 | Outpatient (CLI) | payer OTHER | LOC: M RAD 11:45 | PROVIDERS: ATTEND Nurse Practitioner Family | DX: R31.9 Hematuria, unspecified (principal) ==

== ENCOUNTER → 2023-08-26 | Outpatient (REF) | payer BC ==
[2023-08-26 17:18] LABS: BACTERIA, URINE AUTO NEGATIVE (NEGATIVE); MUCUS, URINE SMALL (NEGATIVE); RBC, URINE AUTO 4 /HPF (0-3); SQUAMOUS EPITHELIAL CELL UR AU 3 /HPF (0-6); WBC, URINE AUTO 10 /HPF (0-3)
== END ==
LOC: M LAB REF 16:25
PROVIDERS: ATTEND Nurse Practitioner Adult Health
DX: R31.9 Hematuria, unspecified (principal)

== ENCOUNTER → 2023-10-09 | Outpatient (CLI) | payer BC | LOC: M WHC 08:12 | PROVIDERS: ATTEND Nurse Practitioner Adult Health | DX: Z12.31 Encounter for screening mammogram for malignant neoplasm of breast (principal) ==

== ENCOUNTER → 2023-10-29 | Outpatient (CLI) | payer BC | LOC: M WHC 07:36 | PROVIDERS: ATTEND Nurse Practitioner Adult Health | DX: R92.8 Other abnormal and inconclusive findings on diagnostic imaging of breast (principal) | CPT/HCPCS: 77065; G0279 ==

== ENCOUNTER → 2024-07-20 | Outpatient (CLI) | payer BC | LOC: M WHC 07:39 | PROVIDERS: ATTEND Internal Medicine | DX: N64.9 Disorder of breast, unspecified (principal) | CPT/HCPCS: 77066; G0279 ==

== ENCOUNTER → 2024-08-04 | Outpatient (CLI) | payer BC | LOC: M WHC 07:47 | PROVIDERS: ATTEND Internal Medicine | DX: Z12.31 Encounter for screening mammogram for malignant neoplasm of breast (principal) ==

== ENCOUNTER → 2025-01-31 | Outpatient (REF) | payer BC ==
[~2025-01-31] MED LIST changes: -IBUP-1022 PO; +IBUP600T42 PO
[2025-01-31 17:38] LABS: IRON (FE) 78.0 UG/DL (50-170)
== END ==
LOC: M LAB REF 14:57
PROVIDERS: ATTEND Nurse Practitioner Adult Health
DX: D50.9 Iron deficiency anemia, unspecified (principal)

== ENCOUNTER → 2025-04-27 | Outpatient (REF) | LOC: M EMP 15:26 | PROVIDERS: ATTEND Family Medicine | DX: Z01.89 Encounter for other specified special examinations (principal) ==